=== PATIENT | male | born 1940 | race Caucasian/White ===

== ENCOUNTER 2022-09-26 10:52 | Outpatient (RCR) | payer MEDICARE, SELFPAY | END 2022-10-29 11:07 | disposition home or self-care (01) | LOC: PT 10:52 | PROVIDERS: PCP Internal Medicine; Visit Provider Podiatrist Foot & Ankle Surgery | DX: R26.89 Other abnormalities of gait and mobility (principal) | CPT/HCPCS: 97110; 97112; 97162; 97530 ==